=== PATIENT | female | born 1980 | race African-American/Black ===

== ENCOUNTER 2018-08-12 | Observation (INO) | payer OTHER, SELFPAY ==
[2018-08-12] MEDS ORDERED: diphenhydrAMINE 50 MG/ML VIAL ONE (00:38)
[2018-08-12] MEDS ORDERED: Metoclopramide HCl 10 MG/2 ML VIAL ONE ×2 (00:38→01:01)
[2018-08-12 01:21] LABS: #Lymphocytes 1.5 thou/uL (1.20-3.40); #Monocytes 0.5 thou/uL (0.11-0.59); #Neutrophils 4.2 thou/uL (1.40-6.50); %Basophils 0.4 % (0.0-1.0); %Eosinophils 0.4 % (0.0-10.0); %Monocytes 7.4 % (0.0-10.0); %Neutrophils 67.8 % (42.0-75.0); Hemoglobin 15.1 g/dL (12.0-16.0); Mean Corpuscular HGB CONC 32.1 g/dL (32.0-36.0); Mean Corpuscular Hemoglobin 28.8 pg (27.0-31.0); Mean Corpuscular Volume 89.8 fL (78.0-98.0); Mean Platelet Volume 8.5 fL (7.4-10.4); Platelet Count 194 thou/uL (130-400); RBC Distribution Width 12.1 % (11.5-14.5); Red Blood Cell (RBC) Count 5.23 mill/uL (4.20-5.40); White Blood Cell (WBC) Count 6.2 thou/uL (4.8-10.8)
[2018-08-12 01:46] LABS: ALT (SGPT) 36 U/L (8-55); AST (SGOT) 42 U/L (5-34); Albumin 3.8 g/dL (3.5-5.0); Alkaline Phosphatase 65 U/L (40-150); Anion Gap 12 mmol/L (10-20); BHCG - Serum Negative (NEGATIVE); BUN (Urea Nitrogen) 13 mg/dL (7.0-18.7); Bilirubin, Total 0.8 mg/dL (0.2-1.2); Calc. Creatinine Clearance 0 mL/min (70-130); Calcium 9.2 mg/dL (7.8-10.44); Carbon Dioxide 22 mmol/L (22-29); Chloride 100 mmol/L (98-107); Estimated GFR-MDRD 57; Globulin 4.3 g/dL (2.4-3.5); Glucose 116 mg/dL (70-105); Potassium 4.4 mmol/L (3.5-5.1); Pregs Control Background? CLEAR/WHITE (CLR/WHITE); Pregs Control Bar Appear? YES (CONTROL BAR); Protein, Total 8.1 g/dL (6.0-8.3); Sodium 130 mmol/L (136-145)
[2018-08-12 01:51] LABS: CKMB 0.4 ng/mL (0-6.6); Troponin I Less than 0.010 ng/mL (< 0.028)
[2018-08-12 03:01] LABS: Bilirubin Small (Negative); Blood, Urine Negative (Negative); Clarity CLEAR (Clear); Glucose, Urine (Dipstick) Negative (Negative); Leukocyte Trace (Negative); Nitrite Negative (Negative); Protein, Urine (Dipstick) Trace mg/dL (Neg-Trace); Specific Gravity, Urine 1.027 (1.002-1.036)
[2018-08-12 03:05] LABS: Bacteria/HPF None Seen HPF (None Seen); Hyaline Casts/LPF 4-6 HYALINE CAST LPF (0-3 Hyaline); Pathc Cast-AUWi Flag 1.59 (0-2.49)
[2018-08-12] MEDS ORDERED: Lorazepam 2 MG/ML VIAL ONE (03:05)
[2018-08-12] MEDS ORDERED: Lidocaine 4% Topical Sol 50 ML BOT ONE (03:05)
[2018-08-12] MEDS ORDERED: Lidocaine 1% (PF) 30 ML VIAL ONE (03:06)
[2018-08-12 03:24] LABS: Renal Epithelial None Seen HPF (0-3); Transitional Epithelial NONE SEEN HPF (0-3)
[2018-08-12] MEDS ORDERED: Morphine 4 MG/ML VIAL ONE (03:39)
[2018-08-12] MEDS ORDERED: Ketorolac Tromethamine 30 MG/ML VIAL ONE (04:01)
[2018-08-12] MEDS ORDERED: cefTRIAXone\\ROCEPHIN 2 GM VIAL ONE (04:30)
[2018-08-12] MEDS ORDERED: Dexamethasone 10 MG/ML VIAL ONE (04:30)
[2018-08-12] MEDS ORDERED: Ondansetron PF 4 MG/2 ML Vial IVP PRN (07:55)
[2018-08-12] MEDS ORDERED: Acetaminophen 325 MG TAB PO PRN (07:55)
[2018-08-12] MEDS ORDERED: Ondansetron ODT 4 MG TAB SL PRN (07:55)
[2018-08-12 08:00] VITALS: BMI 46.8
--- NOTE | 2018-08-12 08:18 | CT ---
CT OF THE BRAIN WITHOUT CONTRAST: Date: 08/12/18 INDICATION: 38-year-old [facility] with headache in the back of her head and behind her eyes for the past 3-4 days. COMPARISON: None. FINDINGS: No acute infarct, hemorrhage, or hydrocephalus is present. Septum pellucidum and third ventricle are midline. There is a defect involving the right medial orbital wall which may be related to congenital dehiscence or sequelae of remote trauma. Mastoid air cells are clear. Visualized paranasal sinuses a re clear. Skull is intact. IMPRESSION: 1. No acute intracranial abnormality. 2. Small defect involving the right medial orbital wall may reflect sequelae of remote trauma or con genital dehiscence. POS: [facility]
--- NOTE | 2018-08-12 08:32 | CT ---
CT ABDOMEN AND PELVIS WITH IV CONTRAST: Date: 08/12/18 INDICATION: Right lower quadrant abdominal pain, fever. FINDINGS: The lung bases are clear. The gallbladder is surgically absent. There is calcified granuloma within the liver and spleen. Pancreas, adrenal glands, and kidneys appear within normal limits. There is a normal appendix in the right lower quadrant of the abdomen. No free fluid is evident. The bladder is decompressed. The rectum and perirectal soft tissues are unremarkable appearing. There is a mild amount of retained stool within the colon. Small bowel of normal caliber. No acute osseous abnormality is evident. IMPRESSION: No CT explanation for the patient's right lower quadrant abdominal pain or fever. POS: [facility]
--- NOTE | 2018-08-12 09:27 | RAD ---
2 VIEWS CHEST: Date: 08/12/18 PROVIDED CLINICAL HISTORY: Fever. FINDINGS: No comparisons. Cardiac and mediastinal silhouette is within normal limits. Lungs appear clear. No pleural fluid or p neumothorax apparent. IMPRESSION: No evidence for an acute cardiopulmonary process. POS: OFF
[2018-08-12] MEDS ORDERED: VANCOMYCIN IVPB PRN (10:08)
[2018-08-12] MEDS ORDERED: CEFTRIAXONE IVPB PRN (10:08)
[2018-08-12] MEDS ORDERED: Vancomycin HCl 1 GM in Premix Bag 1 BAG IVPB SCH (10:45)
[2018-08-12] MEDS: Dexamethasone 4 MG TAB PO SCH ×3 (11:14→23:38)
--- NOTE | 2018-08-12 11:29 | HP ---
CHIEF COMPLAINT: Headache, fever. HISTORY OF PRESENT ILLNESS: The patient is a 38-year-old black female who is an inmate who presented with 4-day history of headache with some neck stiffness and fever. She lost her appetite in the las t few days. She had some night sweats, nausea. Her temperature apparently was up to 101.5. She was brought to the Emergency Room and was evaluated and is admitted for further evaluation and treatment for possible meningitis. There was not any altered mental status. The headache was located in the occipital area, is rated at 10/10. Since she had injection of Toradol in the emergency room last nig ht she does not have any headache at this point. She denied any photophobia, but she noticed some bl urred vision. There was not any double vision. She denied any cough. She denied any dysuria. She denied any upper respiratory tract infection recently. PAST MEDICAL HISTORY: None. PAST SURGICAL HISTORY: 1. Left elbow surgery. 2. Cholecystectomy. MEDICATIONS: None. SOCIAL HISTORY: She smokes 1 pack of cigarettes per week. She has been smoking cigarettes at this r ate for approximately 15 years. She does not use any illicit drugs. She drinks beer, 4-6 beers ever y day prior to this imprisonment. FAMILY HISTORY: Mother has diabetes and COPD. Father had larynx cancer. His larynx was removed. ALLERGIES: None. REVIEW OF SYSTEMS: CONSTITUTIONAL: Positive for fever and night sweats. ENT: Negative for epistaxis and nasal congestion. CARDIOVASCULAR: Negative for palpitations and chest pain. RESPIRATORY: Negative for shortness of breath and cough. GASTROINTESTINAL: Positive for some abdominal discomfort and lack of appetite. GENITOURINARY: Negative for dysuria or hematuria. Positive for vaginal discharge. Also positive fo r some open ulcer perirectally. MUSCULOSKELETAL: Positive for neck pain. SKIN: Negative for rash or erythema. NEUROLOGIC: Positive for headache. No focal deficits. PSYCHIATRIC: Negative for suicidal or homicidal ideations. PHYSICAL EXAMINATION: VITAL SIGNS: Blood pressure is 112/53, pulse is 70, temperature 97.9, respiratory rate is 18, O2 sat uration 95 on room air. HEAD: Head is atraumatic, normocephalic. GENERAL: She is resting comfortably in bed. She is not in any distress. EYES: PERRLA. Conjunctivae pinkish. Extraocular movements within normal limits. Visual thibodeaux wit hin normal limits. Oral mucosa is moist. NECK: Supple, no lymphadenopathy. Thyroid is not palpable. LUNGS: Clear. HEART: S1, S2 normal, no S3, no S4, no murmur. ABDOMEN: Soft, nontender, mildly distended, obese. No guarding, no masses. EXTREMITIES: No clubbing, cyanosis or edema. TECHNICAL DOCUMENT WRITER: She is alert and oriented x4. There is no sensorimotor deficits present. Cranial nerves are i ntact. RECTAL: Perirectally there is a small open ulcer which was apparently swabbed by the emergency room physician last night. PSYCHIATRIC: Evaluation did not reveal any depression, anxiety, suicidal or homicidal ideations. LABORATORY AND X-RAY FINDINGS: Showed normal CBC. Sodium of 130, potassium 4.4, chloride 100, CO2 2 2, BUN 13, creatinine 1.25, glucose 116, AST 42, globulin 4.3 and the rest is within normal limits. Urinalysis showed 40 of ketones, small amount of bilirubin, 4.0 urobilinogen, leukocyte esterase trac e, 4-6 WBC's, 7-10 squamous epithelial cells, 4-6 hyaline casts. IMAGES: 1. Chest x-ray showed no evidence for an acute cardiopulmonary process. CT of the brain without any acute intracranial abnormality of the small defect involving the right medial orbital wall which may reflect sequelae of remote trauma or congenital dehiscence. 2. The pelvis and abdomen CT showed no CT explanation for the patient's right lower quadrant abdomin al pain or fever. IMPRESSION: 1. Headache with fever and neck stiffness, suspicion for meningitis, failed attempt of lumbar punctu re in the emergency room. 2. Renal insufficiency of unclear chronicity, acute versus chronic. 3. Hyponatremia with normal chloride level and an anion gap of 12. 4. Perirectal ulcer of unclear etiology, status post swab by emergency room physician. Results are pending. 5. Elevated AST with normal ALT and normal total bilirubin and normal alkaline phosphatase to be fol lowed on an outpatient basis. PLAN: Admission to the medical floor. Condition is fair. Activity: Bed rest and bathroom privileg es. IV; normal saline at 75 mL per hour. The patient received vancomycin 1 gram and ceftriaxone 2 g william, along with dexamethasone 10 mg in the emergency room. We will continue all those 3 agents. We will have pharmacy to check the trough on vancomycin and continue those for therapeutics. Will nathalie r lumbar puncture through Radiology to be done. Gram stain cultures, cell count, protein and glucose . We will use SCDs for DVT prophylaxis. No heparin since she is going to have the procedure. We wi ll keep her n.p.o. until the procedure is done, then we will feed her with regular diet after that. We will have Neurology to evaluate the patient.
[2018-08-12 14:41] LABS: CSF Source CSF; Clarity Clear (Clear); RBC Count - Manual 0 /cumm (None Seen); Tube # 4; WBC/NonHematics Count - Manual 1 /cumm (0-5)
[2018-08-12 14:42] LABS: Color Of CSF Supernatant COLORLESS (Colorless); Tube # 1; Unspun CSF Color COLORLESS (Colorless)
[2018-08-12 14:56] LABS: CSF, Glucose 80 mg/dl (40-70); CSF, Protein 23 mg/dL (15-40)
[2018-08-12] MEDS: Sodium Chloride 0.9% 1,000 ML IV SCH (15:16)
[2018-08-12] MEDS ORDERED: Iopamidol 370 76% 100 ML VIAL ONE (15:49)
--- NOTE | 2018-08-12 16:52 | RAD ---
FLUOROSCOPIC GUIDED LUMBAR PUNCTURE: 08/12/18 HISTORY: Fever, headache and neck pain. TECHNIQUE: After informed consent was obtained, the patient was placed on the fluoroscopy table in the prone pos ition. An area overlying the L2-3 interspace was marked, and the area was meticulously prepped and dr aped in the usual sterile fashion. Skin and subcutaneous tissues were infiltrated with buffered 1% lidocaine for local anesthesia. Utili zing fluoroscopic guidance, a 20 gauge spinal needle was advanced into the thecal sac. The inner styl et was removed with return of clear cerebrospinal fluid. There is an elevated opening pressure of judi roximately 21 cm of water. Approximately 8 mL of clear cerebrospinal fluid was collected. The inner stylet was removed. The need le was removed, and hemostasis was achieved with direct pressure. The patient tolerated the procedure well and without immediate complication. FINDINGS: AP and lateral views of the lumbar spine demonstrate five nonribbearing lumbar type vertebral bodies with scattered osteophytes within the lumbar spine. No fracture or subluxation is identified. Surgica l clips overlie the right upper quadrant. Fluoroscopic guided lumbar puncture was successfully perfor med with puncture at the L2-3 level. IMPRESSION: 1. Technically successful fluoroscopic guided lumbar puncture with approximately 8 mL of clear c erebrospinal fluid collected. 2. Elevated opening pressure of 21 cm of water. 1. POS: [facility]
[2018-08-12] MEDS: cefTRIAXone\\ROCEPHIN 2 GM in Sodium Chloride 0.9% 100 ML IVPB SCH (17:34)
[2018-08-13 02:01] LABS: Chlamydia by PCR Not Detected (NotDetected); GC by PCR Not Detected (NotDetected)
[2018-08-13] MEDS: Dexamethasone 4 MG TAB PO SCH ×2 (05:46→13:05)
[2018-08-13] MEDS: cefTRIAXone\\ROCEPHIN 2 GM in Sodium Chloride 0.9% 100 ML IVPB SCH (05:46)
[2018-08-13] MEDS: Sodium Chloride 0.9% 1,000 ML IV SCH ×2 (05:48→17:11)
--- NOTE | 2018-08-13 13:23 | CON ---
DATE OF CONSULTATION: 08/13/2018 REASON FOR CONSULTATION: Possible meningitis. HISTORY OF PRESENT ILLNESS: A 38-year-old with history of cholecystectomy, who is an inmate, I believe, in the [facility] for the past 4 months and developed some rhinorrhea, fever and some headaches with neck stiffness associated with anorexia. No visual symptoms. No sore throat, odynophagia, dysphagia. No cough or sputum production. No abdominal pain or diarrhea. No genitourinary symptoms. No joint symptoms or skin disorder. PAST MEDICAL HISTORY: Otherwise negative. PAST SURGICAL HISTORY: Left elbow surgery and cholecystectomy. CURRENT MEDICATIONS: Ceftriaxone, dexamethasone, vancomycin. FAMILY HISTORY: Diabetes and COPD, laryngeal cancer. ALLERGIES: None. PHYSICAL EXAMINATION: VITAL SIGNS: Temperature max 98.1, blood pressure 140/60, pulse 70, respirations 20, O2 sat 96%. SKIN: No skin lesions. No lymphadenopathy. HEENT: Ocular movements are conjugate. Sclerae white. Nasal passages patent. Oral cavity normal. NECK: Supple. No jugular vein distention. No spine tenderness. LUNGS: Clear to auscultation and percussion. HEART: S1, S2, regular rate. No S3, S4. ABDOMEN: Soft, not distended or tender. No ascites. No bladder distention. EXTREMITIES: No joint inflammatory activity. NEUROLOGIC: Nonfocal. LABORATORY DATA: White cell count and the remainder of her CBC within normal limits. Creatinine 1.25, albumin 3.8, globulin 4.3. Urinalysis with 4-6 wbc' s. CSF with 1 WBC, glucose 80, protein 23. Chlamydia DNA and Neisseria gonorrhoeae DNA negative. ASSESSMENT: Headaches with fever. No rhinorrhea. DISCUSSION: All CSF findings are normal. Meningitis has been ruled out. Discontinue antimicrobial therapy. Check HIV serology and RPR. Check respiratory virus PCR. MTDD
[2018-08-13 13:32] LABS: HIV 1/2 INDEX 0.08 S/CO (<1.00); Syphilis Antibody Nonreactive (Nonreactive); Syphilis Antibody Index 0.09 S/CO (<1.00 Non-Reactive)
[2018-08-13 13:59] LABS: HIV (1/2) Antibody/Antigen NonReactive (NonReactive)
[2018-08-13 15:38] VITALS: BP 134/74; TEMP 98.2
--- NOTE | 2018-08-14 03:19 | DIS ---
DATE OF ADMISSION: 08/12/2018 DATE OF DISCHARGE: 08/13/2018 CONSULTANTS: Dr. Ciro Jarrell, Infectious Disease Service. FINAL DIAGNOSES: 1. Headache with fever, acute meningitis was ruled out. 2. Renal insufficiency. 3. Hyponatremia. 4. Perirectal ulcer with negative RPR and HIV status. 5. Elevated AST, normal; ALT normal. Total bilirubin and alkaline phosphatase, most likely related to her obesity. 6. Bacterial vaginosis. HOSPITAL COURSE: The patient is a 38-year-old black female who is an inmate who presented with 4-day history of headache with some neck stiffness and fever. She lost her appetite. Her temperature judi arently was up to 101.5. She was brought to the emergency room for further evaluation. There was no t any altered mental status, headache was mainly in the occipital area, rated at 10/10. The LP was a ttempted, but failed. Her white count was within normal limits. Sodium was 130, potassium 4.4, chlo ride 100, CO2 of 22, BUN 13, creatinine 1.25, AST was 42. Urinalysis showed 40 of ketones, small dwaine unt of bilirubin, 4 of urobilinogen, trace of leukocyte esterase, 4-6 wbc's, 7-10 squamous epithelial cells, 4-6 hyaline casts. Chest x-ray showed no evidence of acute cardiopulmonary process. CT of t he brain without any acute intracranial abnormality. CT of the pelvis and abdomen negative. So, the patient was admitted to the hospital with IV fluids for observation. She received vancomycin, ceftr iaxone, and dexamethasone. The LP was done by Interventional radiologist, it showed colorless fluid, clear, 1 WBC, 0 RBC, 80 of glucose, 23 of protein. The patient was seen by Dr. Jarrell, who ruled out acute meningitis. Her antibiotics were stopped. HIV was checked and is not reactive and RPR is non reactive. She showed some positive findings for Gardnerella on her vaginal swab and she will be on F lagyl 500 mg twice a day for 7 days for bacterial vaginosis. Her general condition improved signific antly. She is feeling good. Does not have any complaints to offer. Her temperature has not been el evated during this hospitalization. She was seen and examined before she is discharged. Her blood p ressure is 134/74, pulse is 71, temperature 98.2, respiratory rate is 18, pulse oximetry is 97% on ro om air. She is discharged back to skilled nursing in good condition. ACTIVITY: As tolerated. DIET: Regular. DISCHARGE TIME: Less than 30 minutes.
--- NOTE | 2018-08-22 17:04 | EKG ---
Test Reason : HEADACHE Blood Pressure : / mmHG Vent. Rate : 081 BPM Atrial Rate : 081 BPM P-R Int : 146 ms QRS Dur : 082 ms QT Int : 366 ms P-R-T Axes : 053 -07 005 degrees QTc Int : 425 ms Sinus rhythm with occasional Premature ventricular complexes Possible Left atrial enlargement Borderline ECG Confirmed by JANET BOND ([id number]), primer expeditor and drier ALEN EUBANKS ([id number]) on 08/22/2018 5:04:13 PM Referred By: Confirmed By:JANET BOND
== END 2018-08-13 16:58 ==
LOC: ERS → 2SW 04:48
PROVIDERS: ADMIT Internal Medicine; ATTEND Internal Medicine
DX: R51 Headache (principal); R50.9 Fever, unspecified; E87.1 Hypo-osmolality and hyponatremia; N28.9 Disorder of kidney and ureter, unspecified; K62.6 Ulcer of anus and rectum; N76.0 Acute vaginitis
CPT/HCPCS: 36415; 62270; 70450; 71046; 74177; 80053; 81003; 81015; 82553; 82945; 83605; 84157; 84484; 84703; 85025; 86780; 87040; 87070; 87086; 87205; 87389; 87480; 87491; 87510; 87591; 87633; 87660; 87804; 89051; 90471; 90686; 93005; 96361; 96365; 96366; 96367; 96375; 96376; 99406; G0008; G0378; J0696; J1100; J1200; J1885; J2001; J2060; J2270; J2765; J3370; J7050; J8540